=== PATIENT | male | born 1980 | race African-American/Black ===

== ENCOUNTER 2016-07-13 00:48 | Emergency (ER) | payer OTHER ==
[~2016-07-13] VITALS: Ht 180.3 cm; Wt 116.8 kg
[2016-07-13 01:19] LABS: HEMATOCRIT 39.4 % (38.0-50.0); MCH 29.2 PG (29.0-34.0); MCHC 34.3 G/DL (30.0-36.0); MCV 85.1 FL (86-99); MEAN PLAT.VOLUME 10.3 uM^3 (9.0-12.4); PLATELET COUNT 245 K/uL (156-360); RBC DIS.WIDTH-CV 13.3 % (11.8-14.6); RBC DIS.WIDTH-SD 40.4 % (39-53); RED BLOOD COUNT 4.63 M/uL (4.00-5.50); WHITE BLOOD COUNT 6.2 K/uL (4.1-10.2)
[2016-07-13 01:31] LABS: CHLORIDE 111 mEq/L (99-109); POTASSIUM 3.6 mEq/L (3.7-5.4); SODIUM 146 mEq/L (136-147)
[2016-07-13 01:33] LABS: GLUCOSE 120 mg/dL (70-99)
[2016-07-13 01:34] LABS: ANION GAP 9 MEQ/L (2-14)
[2016-07-13 01:37] LABS: UREA NITROGEN (BUN) 11 mg/dL (9-23)
[2016-07-13 01:46] LABS: GFR ESTIMATE (CALCULATED) > 59 mL/min/
[2016-07-13 01:47] LABS: TROP-I INTERPRETATION NEGATIVE; TROPONIN-I 0.01 ng/mL (0.0-0.30)
[2016-07-13 03:00] LABS: D-DIMER ELISA < 0.15 mg/L FEU (< 0.57)
[2016-07-13 04:02] LABS: TROP-I INTERPRETATION NEGATIVE; TROPONIN-I 0.01 ng/mL (0.0-0.30)
[2016-07-13 04:18] VITALS: BP 151/97
== END 2016-07-13 04:30 ==
LOC: EME 00:48 → EDBD 00:48 → EME 04:30
PROVIDERS: Emergency Medicine
DX: R07.9 Chest pain, unspecified (principal); I10 Essential (primary) hypertension; J45.909 Unspecified asthma, uncomplicated; Z87.891 Personal history of nicotine dependence
CPT/HCPCS: 71020; 71275; 80048; 84484; 85027; 85379; 93005; 99281; 99285